=== PATIENT | male | born 1955 | race Caucasian/White ===

== ENCOUNTER 2018-03-10 12:50 | Emergency (ER) | payer SELFPAY ==
[2018-03-10] MEDS: ONDANSETRON (ODT) 4 MG TAB ODT (15:09)
[2018-03-10] MEDS: OXYCODONE/ACETAMINOPHEN (5/325) TAB PO (15:10)
== END 2018-03-10 16:48 | disposition home or self-care (01) ==
LOC: E/R 12:50 → FTE 16:48
DX: M25.559 Pain in unspecified hip (principal)
CPT/HCPCS: 99282

== ENCOUNTER 2018-04-15 13:46 | Emergency (ER) | payer SELFPAY ==
[2018-04-15] MEDS: OXYCODONE/ACETAMINOPHEN (10/325) TAB PO (14:42)
== END 2018-04-15 15:15 | disposition home or self-care (01) ==
LOC: FTE 13:46
DX: M25.551 Pain in right hip (principal); Z87.891 Personal history of nicotine dependence; Z96.641 Presence of right artificial hip joint
CPT/HCPCS: 99283

== ENCOUNTER 2018-04-27 10:36 | Emergency (ER) | payer SELFPAY ==
[2018-04-27] MEDS: OXYCODONE/ACETAMINOPHEN (10/325) TAB PO (11:38)
== END 2018-04-27 13:18 | disposition home or self-care (01) ==
LOC: FTE 10:36
DX: M25.551 Pain in right hip (principal); F17.210 Nicotine dependence, cigarettes, uncomplicated
CPT/HCPCS: 99283

== ENCOUNTER 2018-05-04 11:00 | Emergency (ER) | payer SELFPAY ==
[2018-05-04] MEDS: OXYCODONE/ACETAMINOPHEN (10/325) TAB PO (12:08)
== END 2018-05-04 14:06 | disposition home or self-care (01) ==
LOC: FTE 11:00
DX: M25.551 Pain in right hip (principal); F17.210 Nicotine dependence, cigarettes, uncomplicated
CPT/HCPCS: 73510; 99283-25

== ENCOUNTER 2018-06-13 15:37 | Emergency (ER) | payer SELFPAY ==
[2018-06-13] MEDS: OXYCODONE/ACETAMINOPHEN (10/325) TAB PO (17:13)
== END 2018-06-13 17:17 | disposition home or self-care (01) ==
LOC: FTE 17:17
DX: M25.551 Pain in right hip (principal); G89.29 Other chronic pain; F17.210 Nicotine dependence, cigarettes, uncomplicated
CPT/HCPCS: 99283

== ENCOUNTER 2018-07-02 12:11 | Emergency (ER) | payer MEDICAID ==
[2018-07-02] MEDS: OXYCODONE/ACETAMINOPHEN (10/325) TAB PO (15:18)
== END 2018-07-02 15:20 | disposition home or self-care (01) ==
LOC: FTE 12:11
DX: M25.551 Pain in right hip (principal); G89.29 Other chronic pain; F17.210 Nicotine dependence, cigarettes, uncomplicated
CPT/HCPCS: 99283; Z7502

== ENCOUNTER 2018-07-11 11:26 | Emergency (ER) | payer SELFPAY, MEDICAID ==
[2018-07-11] MEDS: OXYCODONE/ACETAMINOPHEN (5/325) TAB PO (11:59)
== END 2018-07-11 12:05 | disposition home or self-care (01) ==
LOC: FTE 11:26
DX: M25.551 Pain in right hip (principal); G89.29 Other chronic pain; F17.210 Nicotine dependence, cigarettes, uncomplicated
CPT/HCPCS: 99283

== ENCOUNTER 2018-07-13 15:11 | Emergency (ER) | payer SELFPAY ==
[2018-07-13] MEDS: OXYCODONE/ACETAMINOPHEN (10/325) TAB PO (16:41)
[2018-07-13] MEDS: ONDANSETRON (ODT) 4 MG TAB ODT (16:41)
== END 2018-07-13 17:42 | disposition home or self-care (01) ==
LOC: FTE 15:11
DX: M25.551 Pain in right hip (principal); G89.29 Other chronic pain; F17.210 Nicotine dependence, cigarettes, uncomplicated
CPT/HCPCS: 99283

== ENCOUNTER 2018-08-04 12:46 | Emergency (ER) | payer SELFPAY ==
[2018-08-04] MEDS: OXYCODONE/ACETAMINOPHEN (5/325) TAB PO (14:25)
== END 2018-08-04 14:35 | disposition home or self-care (01) ==
LOC: FTE 12:46
DX: M25.551 Pain in right hip (principal); G89.29 Other chronic pain; F17.210 Nicotine dependence, cigarettes, uncomplicated
CPT/HCPCS: 99283

== ENCOUNTER 2018-08-08 14:30 | Emergency (ER) | payer SELFPAY ==
[2018-08-08] MEDS: OXYCODONE/ACETAMINOPHEN (10/325) TAB PO (16:11)
== END 2018-08-08 16:46 | disposition home or self-care (01) ==
LOC: E/R 14:30
DX: M25.551 Pain in right hip (principal); G89.29 Other chronic pain; Z87.891 Personal history of nicotine dependence
CPT/HCPCS: 99283

== ENCOUNTER 2018-08-10 13:00 | Emergency (ER) | payer SELFPAY ==
[2018-08-10] MEDS ORDERED: OXYCODONE/ACETAMINOPHEN (10/325) TAB PO (13:34)
[2018-08-10] MEDS: OXYCODONE/ACETAMINOPHEN (5/325) TAB PO (13:49)
[2018-08-10] MEDS ORDERED: OXYCODONE/ACETAMINOPHEN (5/325) TAB PO (14:00)
== END 2018-08-10 13:50 | disposition home or self-care (01) ==
LOC: FTE 13:00
DX: M25.551 Pain in right hip (principal); F17.210 Nicotine dependence, cigarettes, uncomplicated
CPT/HCPCS: 99283

== ENCOUNTER 2018-08-25 13:51 | Emergency (ER) | payer SELFPAY | END 2018-08-25 16:15 | disposition left against medical advice (07) | LOC: E/R 13:51 | DX: M25.551 Pain in right hip (principal); Z87.891 Personal history of nicotine dependence | CPT/HCPCS: 99282 ==